=== PATIENT | male | born 1975 | race Caucasian/White ===

== ENCOUNTER 2018-03-26 11:32 | Outpatient (CLI) | payer BC, OTHER ==
[2018-03-26 17:04] LABS: Bilirubin Negative (Negative); Blood, Urine Negative (Negative); Clarity TURBID (Clear); Glucose, Urine (Dipstick) Negative (Negative); Leukocyte Negative (Negative); Nitrite Negative (Negative); Protein, Urine (Dipstick) Trace mg/dL (Neg-Trace); Urobilinogen 0.2 mg/dL (0.2-1.0)
--- NOTE | 2018-03-26 17:19 | RAD ---
CHEST TWO VIEWS: 03/26/18 The heart is normal in size and the lungs are clear. No infiltrate or effusion was seen. There is no sign of pneumonia. The mediastinum appears normal and the trachea is midline. IMPRESSION: No acute thoracic findings. POS: HOME
[2018-03-26 17:23] LABS: Bacteria/HPF None Seen HPF (None Seen); Crystals/HPF 2+ AMORPH URATES HPF (Negative); Hyaline Casts/LPF NONE SEEN LPF (0-3 Hyaline); RBC/HPF None Seen HPF (0-3); Squamous Epithelial 0-3 HPF (0-3); WBC/HPF None Seen HPF (0-3)
[2018-03-26 17:24] LABS: #Lymphocytes 1.1 thou/uL (1.20-3.40); #Monocytes 0.3 thou/uL (0.11-0.59); #Neutrophils 1.7 thou/uL (1.40-6.50); %Basophils 0.5 % (0.0-1.0); %Eosinophils 0.5 % (0.0-10.0); %Lymphocytes 35.2 % (21.0-51.0); %Monocytes 9.8 % (0.0-10.0); %Neutrophils 54.1 % (42.0-75.0); Hemoglobin 14.4 g/dL (14.0-18.0); Mean Corpuscular HGB CONC 33.3 g/dL (32.0-36.0); Mean Corpuscular Hemoglobin 31.1 pg (27.0-31.0); Mean Corpuscular Volume 93.2 fL (78.0-98.0); Mean Platelet Volume 7.2 fL (7.4-10.4); Platelet Count 177 thou/uL (130-400); RBC Distribution Width 11.2 % (11.5-14.5); Red Blood Cell (RBC) Count 4.65 mill/uL (4.70-6.10); White Blood Cell (WBC) Count 3.2 thou/uL (4.8-10.8)
[2018-03-26 17:29] LABS: ALT (SGPT) 104 U/L (8-55); AST (SGOT) 52 U/L (5-34); Albumin 4.5 g/dL (3.5-5.0); Alkaline Phosphatase 84 U/L (40-150); Anion Gap 15 mmol/L (10-20); BUN (Urea Nitrogen) 15 mg/dL (8.9-20.6); Bilirubin, Total 1.5 mg/dL (0.2-1.2); CRP (Inflammatory) 5.08 mg/dL (= or < 0.5); Calc. Creatinine Clearance 0 mL/min (70-130); Calcium 9.7 mg/dL (7.8-10.44); Carbon Dioxide 24 mmol/L (22-29); Chloride 105 mmol/L (98-107); Estimated GFR-MDRD 67; Globulin 2.5 g/dL (2.4-3.5); Glucose 102 mg/dL (70-105); LDH 285 U/L (125-220); Potassium 3.9 mmol/L (3.5-5.1); Sodium 140 mmol/L (136-145)
[2018-03-26 17:47] LABS: HIV (1/2) Antibody/Antigen Non-Reactive (NonReactive); HIV 1/2 INDEX 0.13 S/CO (<1.00)
== END 2018-03-26 11:33 | disposition home or self-care (01) ==
LOC: BURRAD 11:32
PROVIDERS: ATTEND Family Medicine
DX: R50.9 Fever, unspecified (principal)
CPT/HCPCS: 36415; 71046; 83615; 85652; 86140; 87086; 87389